=== PATIENT | female | born 1980 | race African-American/Black ===

== ENCOUNTER 2017-04-29 08:29 | Emergency (ER) | payer MEDICAID ==
[~2017-04-29] VITALS: Ht 170.2 cm; Wt 99.0 kg
[~2017-04-29 08:29] MED LIST: FERR-43 PO
[2017-04-29 11:05] VITALS: BP 109/68
[2017-04-29] MEDS ORDERED: IBUPROFEN 600MG TABLET PO ONE (11:30)
== END 2017-04-29 11:51 | disposition home or self-care (01) ==
LOC: ER 08:41
DX: R51 Headache (principal); M79.1 Myalgia; W01.0XXA Fall on same level from slipping, tripping and stumbling without subsequent striking against object, initial encounter; Y93.89 Activity, other specified; Y99.8 Other external cause status; Y92.89 Other specified places as the place of occurrence of the external cause; Z91.018 Allergy to other foods; Z91.013 Allergy to seafood
CPT/HCPCS: 99282; Z7610

== ENCOUNTER 2019-07-07 16:07 | Emergency (ER) | payer MEDICAID ==
[~2019-07-07] VITALS: Ht 167.6 cm; Wt 103.0 kg
[2019-07-07] MEDS ORDERED: HYDROCODONE/ACETAMINOPHEN 5/325MG TABLET PO ONE (22:45)
[2019-07-07 23:06] LABS: BASOPHILS % 1.2 % (0.0-2.0); EOSINOPHILS % 1.4 % (0.0-5.0); HEMATOCRIT. 35.2 % (36.0-48.0); HEMOGLOBIN. 12.2 g/dL (12.0-16.0); MEAN CORPUSCULAR HEMOGLOBIN 33.3 pg (28.0-32.0); MEAN CORPUSCULAR VOLUME 96.4 fL (81.0-99.0); MEAN PLATELET VOLUME 8.2 fl (7.4-10.4); NEUTROPHILS % 47.4 % (40.0-76.0); PLATELET 313 x1000/uL (130-400); RED BLOOD CELL COUNT 3.65 mill/uL (4.2-5.4); RED CELL DISTRIBUTION WIDTH 11.5 % (11.6-14.6)
[2019-07-07 23:11] LABS: CHLORIDE 104 mEq/L (98-107)
[2019-07-07 23:59] VITALS: BP 130/79
== END 2019-07-08 00:01 | disposition home or self-care (01) ==
LOC: ER 16:07
DX: R51 Headache (principal); Z91.018 Allergy to other foods; Z98.890 Other specified postprocedural states
CPT/HCPCS: 36415; 80048; 81025; 85025; 99284